=== PATIENT | male | born 1985 | race Two or more races ===

== ENCOUNTER 2021-05-27 08:00 | Outpatient (CLI) | payer OTHER | END 2021-05-27 08:30 | disposition home or self-care (01) | LOC: PPH VACUNA 08:00 | PROVIDERS: ATTEND Emergency Medicine Pediatric Emergency Medicine | DX: Z23 Encounter for immunization (principal) ==

== ENCOUNTER 2022-05-01 09:14 | Outpatient (CLI) | payer OTHER | END 2022-05-01 09:24 | disposition home or self-care (01) | LOC: PPH VACUNA 09:14 | PROVIDERS: ATTEND Emergency Medicine Pediatric Emergency Medicine | DX: Z23 Encounter for immunization (principal) ==